=== PATIENT | male | born 1960 | race African-American/Black ===

== ENCOUNTER 2018-12-11 19:23 | Inpatient (IN) | payer MEDICAID | END 2018-12-14 11:01 | disposition home or self-care (01) | LOC: ER 19:23 → TELE 19:24 → TELE-WESTW 12-12 03:03 | DX: I47.1 Supraventricular tachycardia (principal); E11.9 Type 2 diabetes mellitus without complications; E87.6 Hypokalemia; R06.02 Shortness of breath; N28.9 Disorder of kidney and ureter, unspecified; F14.10 Cocaine abuse, uncomplicated ==

== ENCOUNTER 2025-03-25 04:59 | Emergency (ER) | payer MEDICAID ==
[~2025-03-25] VITALS: Ht 180.3 cm; Wt 106.0 kg
[~2025-03-25 04:59] MED LIST: CHOL500021 PO; ENAL1TAB42 PO; GABA-1250 PO; METF-370 PO; TRAM50TA2 PO
[2025-03-25 07:06] LABS: Urine Protein, UAD TRACE (Negative)
[2025-03-25 07:18] LABS: Hematocrit 40.6 % (41.0-53.0); Hemoglobin 13.1 g/dL (13.5-17.5); Mean Corpuscular Hemoglobin 23.3 pg (28.0-32.0); Mean Corpuscular Volume 72.3 fL (80.0-100.0); Nucleated Red Blood Cells % 0.2 %
[2025-03-25 07:24] LABS: Chloride 106 mmol/L (98-107); Potassium 3.8 mmol/L (3.5-5.1); Sodium 142 mmol/L (136-145)
[2025-03-25 07:25] LABS: Anion Gap 10 (5-15); Carbon Dioxide 26 mmol/L (20-31)
[2025-03-25 07:26] LABS: Calcium 9.5 mg/dL (8.7-10.4)
[2025-03-25 07:31] LABS: BUN/Creatinine Ratio 8.3 (10.0-20.0); Blood Urea Nitrogen 9 mg/dL (9-23)
[2025-03-25 07:32] LABS: Glucose 127 mg/dL (74-106)
[2025-03-25] MEDS: HYDROcodone-ACET 5/325MG TAB PO ONE (07:42)
--- NOTE | 2025-03-25 07:50 | ED.PDOC ---
Back pain HPI HPI Comments 65M with PMHx of prostate issues presents to the ED with chief complaint of left lower back pain. Pt states that pain began last night after taking a bath with epsom salt. Pt states when he got up he started feeling pain on his lower left back area. Pt rates the pain 8/10, constant, non-radiating, and no noted exacerbating or relieving factors. Pt denies symptoms of nausea, vomiting, or dysuria. Pt denies pain during urination, usually able to urinate with more frequency about 4-7x per night but he has not been able to urinate since last night. Pt has surgical history of unknown prostate surgery. Pt has elevated blood pressure of 180/110 with otherwise stable vitals at this time. Pt denies any other symptoms at this time. Chief Complaint: Back Pain Time Seen by MD: 07:35 Allergies: Coded Allergies: NO KNOWN ALLERGIES (Unverified , 12/11/18) Home Meds Reported Medications Enalapril Maleate (Enalapril Maleate) 2.5 Mg Tab, 5 MG PO DAILY for 30 Days, MG 12/14/18 Cholecalciferol (VITAMIN D) 5,000 Unit Tab, 5000 UNIT PO DAILY, TAB 12/12/18 Metformin Hydrochloride (Metformin Hcl) 500 Mg Tab, 500 MG PO IBID 12/12/18 Gabapentin (Gabapentin) 300 Mg Cap, 300 MG PO DAILY 12/12/18 Tramadol Hcl (Tramadol Hcl) 50 Mg Tab, 50 MG PO Q6HP PRN for PAIN SCALE 1 THRU 6 12/12/18 Information Source: Patient Mode of Arrival: Ambulatory Past Medical History PAST MEDICAL HISTORY: Arthritis, DM Surgical History: Denies all surgeries Family History Family History: Reviewed,noncontributory to illness Social History Smoker: Non-Smoker Alcohol: Denies ETOH Use Drugs: Denies Drug Use Constitutional: denies: chills, diaphoresis, fatigue, fever, malaise, sweats, weakness, others EENTM: denies: blurred vision, double vision, ear bleeding, ear discharge, ear drainage, ear pain, ear ringing, eye pain, eye redness, hearing loss, mouth pain, mouth swelling, nasal discharge, nose bleeding, nose congestion, nose pain, photophobia, tearing, throat pain, throat swelling, voice changes, others Respiratory: denies: cough, hemoptysis, orthopnea, SOB at rest, shortness of breath, SOB with excertion, stridor, wheezing, others Cardiovascular: denies: chest pain, dizzy spells, diaphoresis, Dyspnea on exertion, edema, irregular heart beat, left arm pain, lightheadedness, palpitations, PND, syncope, others Gastrointestinal: denies: abdomen distended, abdominal pain, blood streaked bowels, constipated, diarrhea, dysphagia, difficulty swallowing, hematemesis, melena, nausea, poor appetite, poor fluid intake, rectal bleeding, rectal pain, vomiting, others Genitourinary: denies: burning, dysuria, flank pain, frequency, hematuria, i ncontinence, penile discharge, penile sore, pain, testicle pain, testicle swelling, urgency, others Neurological: denies: dizziness, fainting, headache, left sided numbness, left sided weakness, numbness, paresthesia, pre-existing deficit, right sided numbness, right sided weakness, seizure, speech problems, tingling, tremors, weakness, others Musculoskeletal: reports: back pain; denies: gout, joint pain, joint swelling, muscle pain, muscle stiffness, neck pain, others Integumetry: denies: bruises, change in color, change in hair/nails, dryness, l aceration, lesions, lumps, rash, wounds, others Allergic/Immunocompromised: denies: Difficulty Healing, Frequent Infections, Hives, Itching, others Hematologic/Lymphatic: denies: anemia, blood clots, easy bleeding, easy bruising, swollen glands, others Endocrine: denies: excessive hunger, excessive sweating, excessive thirst, excessive urination, flushing, intolerance to cold, intolerance to heat, unexplained weight gain, unexplained weight loss, others Psychiatric: denies: anxiety, bipolar disorder, depression, hopeless, panic disorder, schizophrenia, sleepless, suicidal, others All Other Systems: Reviewed and Negative Physical Exam General Appearance: No Apparent Distress, Normal HEENT: Normal ENT Inspection, Pharynx Normal, TMs Normal Neck: Full Range of Motion, Non-Tender, Normal, Normal Inspection Respiratory: Chest Non-Tender, Lungs Clear, No Accessory Muscle Use, No Respiratory Distress, Normal Breath Sounds Cardiovascular: No Edema, No JVD, No Murmur, No Gallop, Normal Peripheral Pulses, Regular Rate/Rhythm Breast Exam: Deferred Gastrointestinal: No Organomegaly, Non Tender, No Pulsatile Mass, Normal Bowel Sounds, Soft Genitalia: Deferred Pelvic: Deferred Rectal: Deferred Extremities: Tender, Other (left sided parispinal muscle tenderness) Musculoskeletal : Apperance: Normal Neurologic: Alert, internal audit director II-XII nml as Tested, No Motor Deficits, Normal Affect, Normal Mood, No Sensory Deficits Cerebellar Function: Normal Reflexes: Normal Skin: Dry, Normal Color, Warm Lymphatic: No Adenopathy Was a procedure done? Was a procedure done?: No Back Pain Differential Dx Differential Diagnosis: Musculoskeletal Pain Other Differential Diagnosis DDD, LBP X-Ray, Labs, Meds, VS Vital Signs Date Time Temp Pulse Resp B/P (MAP) Pulse Ox O2 Delivery O2 Flow Rate FiO2 03/25/25 08:46 69 20 98 Room Air 03/25/25 08:46 98.0 69 20 167/93 (117) 98 98.0 03/25/25 05:01 98.0 93 18 180/110 100 98.0 Lab Test 03/25/25 07:00 03/25/25 06:38 Range/Units White Blood Count 9.8 4.4-10.8 10^3/uL Red Blood Count 5.62 4.5-5.90 10^6/uL Hemoglobin 13.1 L 13.5-17.5 g/dL Hematocrit 40.6 L 41.0-53.0 % Mean Corpuscular Volume 72.3 L 80.0-100.0 fL Mean Corpuscular Hemoglobin 23.3 L 28.0-32.0 pg Mean Corpuscular Hemoglobin Concent 32.2 32.0-36.0 g/dL Red Cell Distribution Width 16.6 H 11.8-14.3 % Platelet Count 216 140-450 10^3/uL Mean Platelet Volume 9.1 6.9-10.8 fL Neutrophils (%) (Auto) 77.6 37.0-80.0 % Lymphocytes (%) (Auto) 15.5 10.0-50.0 % Monocytes (%) (Auto) 4.6 0.0-12.0 % Eosinophils (%) (Auto) 1.2 0.0-7.0 % Basophils (%) (Auto) 1.1 0.0-2.0 % Neutrophils # (Auto) 7.6 1.6-8.6 10 ^3/uL Lymphocytes # (Auto) 1.5 0.4-5.4 10 ^3/uL Monocytes # (Auto) 0.5 0-1.3 10 ^3/uL Eosinophils # (Auto) 0.1 0-0.8 10 ^3/uL Basophils # (Auto) 0.1 0-0.2 10 ^3/uL Nucleated Red Blood Cells 0.2 % Sodium Level 142 136-145 mmol/L Potassium Level 3.8 3.5-5.1 mmol/L Chloride Level 106 98-107 mmol/L Carbon Dioxide Level 26 20-31 mmol/L Anion Gap 10 5-15 Blood Urea Nitrogen 9 9-23 mg/dL Creatinine 1.09 0.700-1.30 mg/dL Glomerular Filtration Rate Calc 76 >90 mL/min BUN/Creatinine Ratio 8.3 L 10.0-20.0 Serum Glucose 127 H 74-106 mg/dL Calcium Level 9.5 8.7-10.4 mg/dL Troponin I High Sensitivity 11 </=54 ng/L Urine Color Light-yellow Yellow Urine Clarity Clear Clear Urine pH 7.0 5.0-9.0 Urine Specific [place] 1.012 1.001-1.035 Urine Protein Trace H Negative Urine Ketones Negative Negative Urine Blood Negative Negative /uL Urine Nitrite Negative Negative Urine Bilirubin Negative Negative Urine Urobilinogen Normal Negative mg/dL Urine Leukocyte Esterase Trace Negative /uL Urine RBC 2 0 - 3 /hpf Urine Microscopic WBC 11 H 0-3 /HPF Urine Squamous Epithelial Cells None seen <5 /hpf Urine Bacteria Few H None Seen /hpf Urine Sperm Present None Seen /hpf Urine Glucose Normal Normal mg/dL Current Medications Medications (Trade) Dose Ordered Sig/Gale Route Start Time Stop Time Status Last Admin Acetaminophen/ Hydrocodone Bitart (Marceline 5/325MG Tab) 1 tab ONCE ONCE PO 03/25/25 07:00 03/25/25 07:01 DC 03/25/25 07:42 Time of 1ST Reevaluation: 08:05 Reevaluation 1ST: Improved Patient Education/Counseling: Diagnosis, Treatment Family Education/Counseling: No Family Present SEPSIS Sepsis Screen Date sepsis recognized/suspect: Mar 25, 2025 Time Sepsis recognized/suspect: 0505 Recent Procedure: No On Antibiotic Therapy: Yes Respiratory Rate >20: No Heart Rate >90: Yes Temp<36 C (96.8 F) or >38.3 C: No SBP <90 or MAP <65 mmHG: No New Acute Mental Status Change: No Is the patient on CPAP, BIPAP,: No Vital Signs Date Time Temp Pulse Resp B/P (MAP) Pulse Ox O2 Delivery O2 Flow Rate FiO2 03/25/25 08:46 69 20 98 Room Air 03/25/25 08:46 98.0 69 20 167/93 (117) 98 98.0 03/25/25 05:01 98.0 93 18 180/110 100 98.0 Laboratory Tests Test 03/25/25 07:00 White Blood Count 9.8 10^3/uL (4.4-10.8) Medications Medications Dose Ordered Sig/Gale Route Start Time Stop Time Status Last Admin Dose Admin Acetaminophen/ Hydrocodone Bitart 1 tab ONCE ONCE PO 03/25/25 07:00 03/25/25 07:01 DC 03/25/25 07:42 Departure 1 Departure Time of Disposition: 10:01 (Patient likely with sciatica. We will discharge patient home with outpatient follow up) Impression: Primary Impression: Lumbar radiculopathy Disposition: 01 HOME / SELF CARE / HOMELESS Condition: Stable Additional Instructions: You likely have a strain lower back muscle. It is probably causing you sciatica pain. For pain you can take the followinam: Ibuprofen 400mg with food Noon: Acetaminophen 1000mg 4pm: Ibuprofen 400mg with food 8pm: Acetaminophen 1000mg You were prescribed muscle relaxers please take as directed. You should follow up with your regular doctor within one week to ensure you are doing better. If your symptoms worsen or you have any other concerns then please return to the ER. e-Prescriptions Cyclobenzaprine Hcl (Cyclobenzaprine Hcl) 10 Mg Tab 10 MG PO TID PRN for 7 Days, #21 TAB Prov: PHILLY JARA MD 03/25/25 Discharged With: Self Critical Care Note Critical Care Time?: No Stability Stability form required: No Heart Score Heart Score: Heart Score Response (Comments) Value History N/A 0 EKG N/A 0 Age N/A 0 Risk Factors N/A 0 Troponin N/A 0 Total 0 I personally scribed for PHILLY JARA MD ([email or web address]) on 03/25/25 at 07:50. Electronically submitted by Yesenia Stanley ([facility] [place] I personally scribed for PHILLY JARA MD ([email or web address]) on 03/25/25 at 07:57. Electronically submitted by Yesenia Stanley ([email or web address]). PHILLY JARA MD Mar 25, 2025 07:50
[2025-03-25] MEDS ORDERED: CYCL-839 PO (10:02)
[2025-03-25 10:23] VITALS: BP 158/92; PULSE 78; RESP 18; TEMP 98; O2SAT 99
== END 2025-03-25 10:25 | disposition home or self-care (01) ==
LOC: ER 04:59
DX: M54.16 Radiculopathy, lumbar region (principal); E11.9 Type 2 diabetes mellitus without complications; Z79.899 Other long term (current) drug therapy
CPT/HCPCS: 36415; 80048; 81001; 84484; 85025